=== PATIENT | female | born 1925 | race Caucasian/White ===

== ENCOUNTER 2016-11-15 10:31 | Emergency (ER) | payer MEDICARE ==
--- NOTE | ~2016-11-15 | CT2 ---
[facility] A Service of [facility] & [facility] RADIOLOGY TEXT RESULTS PATIENT: JACKSON MENDEZ LOCATION: [facility] : [birth year] UNIT #: [id number] AGE: [address]: Jorge Doherty MD SEX: F ORDER DR: [id number] [facility] [address] [place], [place] [address] [id number] MR#: [id number] Acc #: [id number] NAME: JACKSON MENDEZ : 1925 SEX: F STUDY DATE/TIME: 11/15/2016 13:11 UNIT: [facility] ROOM: STUDY DESCRIPTION: CT Abd and Pelv W Cont Attending Physician: Lamonte Doherty M.D. Ordering Physician: Ed Viktor Almazan M.D. Primary Care Physician: Lindsey Braga M.D. MEDICAL IMAGING REPORT This report is preliminary unless electronic signature is present EXAM CT abdomen and pelvis with contrast, 11/15/2016. HISTORY Bulging on the right side of the abdomen since last night, getting larger. Additional history of hysterectomy, COPD, gastroesophageal reflux disease, right hip surgery. COMPARISON CT abdomen pelvis without contrast 10/10/2006. HIDA scan with Kinevac 09/20/2015. PROCEDURE 5-mm axial images from lung bases to the lesser trochanters after intravenous and enteric contrast administration. Sagittal and coronal reformatted images were obtained. This CT exam was performed with one or more of the following radiation dose reduction techniques: automatic exposure control, adjustment of mA and/or kV according to patient size, and iterative reconstruction. FINDINGS There is a right anterolateral abdominal wall hernia containing small bowel loops. There is no convincing evidence of high-grade large or small bowel obstruction, and the herniated small bowel does not appear to be thickened or inflamed. The hernia neck measures about 3.5 cm. The hernia sac measures approximately 9.7 x 4.3 x 17.3 cm. The largest extent of the hernia is in the craniocaudal direction. There is band-like scarring in the posteromedial left lower lobe. Descending thoracic aorta is tortuous. The liver, gallbladder, spleen, and adrenals are normal. Common bile duct caliber for the patient's stated age is within normal limits, at 8 mm. Bilateral renal cysts are noted. There is moderate calcific atherosclerosis within the abdominal STS. [facility] A Service of [facility] & [facility] RADIOLOGY TEXT RESULTS PATIENT: JACKSON MENDEZ LOCATION: [facility] : [birth year] UNIT #: [id number] AGE: [address]: Jorge Doherty MD SEX: F ORDER DR: aorta and iliac arteries, without aneurysm. The appendix is normal. PELVIS FINDINGS: Right hip replacement changes are present, with beam-hardening artifact obscuring several pelvic images. There is moderate urinary bladder central fluid. Hysterectomy. 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 No acute-appearing osseous abnormalities. Old left rib fractures. IMPRESSION 1. Large right inferolateral abdominal wall hernia containing multiple loops of small bowel that do not appear frankly obstructed or inflamed at this time. 2. The appendix is normal. 3. Hysterectomy. 4. Suspected severe canal stenosis at L5-S1 and L3-L4 on the basis of degenerative change. Old left rib fractures. 5. Right hip replacement. Dictated by... Sandra Montoya M.D. THIS IS AN ELECTRONICALLY VERIFIED REPORT Sandra Montoya M.D. at 11/18/2016 8:31 AM Coleen TD: 11/15/2016 16:45 JOB #: [id number] MEDICAL IMAGING REPORT Page 1 of 1 COPY
[~2016-11-15 10:31] MED LIST: ALBUTEROL0.83 MG/ML IH; ALBUTEROL17 GM NEB; ALLEGRA PO; ALLEGRA180 MG PO; AMBIEN CR PO; AMBIEN10 MG PO; ARTHRO 7 PO; ASPIRIN PO; ATIVAN PO; ATIVAN2 MG PO; BENEFIBER1 PKT PO; BENZONATATE PO; BYSTOLIC5 MG; COMBIVENT MININEB INH; DOMPERIDONE PO; IBUPROFEN800 MG PO; LEVAQUIN250 MG PO; MUCINEX DM1 TAB.SR . PO; NASACORT AQ16.5 GM; NEURONTIN PO; NEURONTIN100 MG; NEXIUM PO; NORVASC PO; NORVASC2.5 MG PO; OYSTER CALCIUM500 MG PO; PERCOCET 5/321 UDTAB PO; PLAVIX PO; PREDNISONE10 MG/DOSE PO; PREMARIN PO; PROTONIX PO; PROZAC PO; PROZAC10 MG PO; PULMICORT0.5 MG/2 M IH; PULMICORT200 MCG/AE INH; REMERON PO; REMERON45 MG PO; SEROQUEL PO; SEROQUEL50 M1 PO; SINGULAIR PO; SPIRIVA18 MCG INH; SPRIVA INH; STOOL SOFTNER; VIBRAMYCIN100 M1 PO; VICODIN PO; VITAMIN C PO; ZOCOR20 MG PO
[2016-11-15 12:21] LABS: ALBUMIN SERUM 3.3 g/dL (3.5-5.0); BILIRUBIN, DIRECT 0.2 mg/dL (0.0-0.2); BILIRUBIN,INDIRECT 0.3 mg/dL (0.0-0.9); BILIRUBIN,TOTAL 0.5 mg/dL (0.2-2.0); CALCIUM SERUM 9.1 mg/dL (8.4-10.2); CREATININE SERUM 0.6 mg/dL (0.6-1.4); GLOM FILT RATE Estimated 80.8 mL/min (>60); POTASSIUM 4.4 mmol/L (3.5-5.1); PROTEIN TOTAL SERUM 6.1 g/dL (6.0-8.3)
[2016-11-15 13:00] LABS: BASOPHIL% 0.4 % (0-2.5); EOSINOPHIL# 0.3 X10e3 (0-0.7); EOSINOPHIL% 4.6 % (0.0-7.0); HEMATOCRIT 39.6 % (35.0-45.0); HEMOGLOBIN 12.7 gm/dL (12.0-16.0); LYMPHOCYTE# 2.3 X10e3 (1.0-3.5); LYMPHOCYTE% 35.8 % (17.0-45.0); MEAN CELL VOLUME 96.9 FL (83-96); MONOCYTE# 0.4 X10e3 (0-1.0); MONOCYTE% 6.8 % (3.0-12.0); NEUTROPHIL# 3.3 X10e3 (1.5-7.1); NEUTROPHIL% 52.4 % (40-75); PLATELET COUNT 162 X10e3 (140-420); RED BLOOD COUNT 4.09 X10e (3.90-5.30); RED CELL DISTRIBUTION WIDTH 14.1 % (11.0-15.5); WHITE BLOOD COUNT 6.3 X10e3 (4.0-10.5)
[2016-11-15 13:02] LABS: DIFF IND NO
== END 2016-11-15 15:40 | disposition home or self-care (01) ==
LOC: CED 10:31
PROVIDERS: Emergency Medicine
DX: K43.9 Ventral hernia without obstruction or gangrene (principal); K21.9 Gastro-esophageal reflux disease without esophagitis; I10 Essential (primary) hypertension; F32.9 Major depressive disorder, single episode, unspecified; J44.9 Chronic obstructive pulmonary disease, unspecified; Z90.710 Acquired absence of both cervix and uterus; Z90.89 Acquired absence of other organs; Z88.0 Allergy status to penicillin; Z88.2 Allergy status to sulfonamides; Z88.1 Allergy status to other antibiotic agents
CPT/HCPCS: 36415; 74177; 80048; 80076; 82150; 83690; 85025; 99284; Q9967